=== PATIENT | male | born 1985 | race Caucasian/White ===

== ENCOUNTER 2025-02-26 17:33 | Emergency (ER) | payer BC ==
[~2025-02-26] VITALS: Ht 170.2 cm; Wt 75.0 kg
[2025-02-26 17:39] VITALS: BP 117/75; PULSE 120; RESP 16; TEMP 36.4; O2SAT 96
[2025-02-26] MEDS ORDERED: LIDOCAINE HCL/EPINEPHRINE 1%-EPI 1:100,000 20ML VIAL INFIL ONE (18:00)
== END 2025-02-26 20:15 | disposition home or self-care (01) ==
LOC: ER 17:33
DX: S02.2XXA Fracture of nasal bones, initial encounter for closed fracture (principal); S01.81XA Laceration without foreign body of other part of head, initial encounter; Y04.0XXA Assault by unarmed brawl or fight, initial encounter; Y93.89 Activity, other specified; Y92.89 Other specified places as the place of occurrence of the external cause; Y99.8 Other external cause status
CPT/HCPCS: 99284; 70450; 12013; J2004